=== PATIENT | male | born 1965 | race Caucasian/White ===

== ENCOUNTER 2017-04-24 18:35 | Inpatient (IN) | payer OTHER ==
[2017-04-24] MEDS ORDERED: Albuterol 0.083% Inhal Sol (2.5 mg/3 mL) UD INH ONE (20:01)
--- NOTE | 2017-04-24 20:05 | ED PDOC ---
HPI: CCC, URI, Sore Throat Time Seen by Provider: 04/24/17 19:14 Chief Complaint (Nursing): Flu-like Symptoms Chief Complaint (Provider): fever History Per: Patient History/Exam Limitations: no limitations Onset/Duration Of Symptoms: Days (5), Waxing/Waning Current Symptoms Are (Timing): Still Present Associated Symptoms: Fever, Cough, Nasal Congestion Additional History Per: Patient Additional Complaint(s): 51 y/o male presents with intermittent fevers x 5 days. Associated nasal congestion, nonproductive cough. PAtient seen by a clinic at his job yesterday and prescribed Azithromycin, but states today fever was noted to be 102.9, so was advised to come to ED for a chest xray. Denies headache, dizziness, nausea/ vomiting, chest pain, shortness of breath, palpitations, abdominal pain, changes in bowel movements, recent travel. No antipyretics taken today. Past Medical History Reviewed: Historical Data, Nursing Documentation, Vital Signs Vital Signs: Last Vital Signs Temp 98.0 F 04/24/17 22:58 Pulse 77 04/24/17 22:58 Resp 17 04/24/17 22:58 BP 144/83 04/24/17 22:58 Pulse Ox 99 04/24/17 22:58 - Medical History Other PMH: cardiomyopathy - Surgical History Surgical History: No Surg Hx - Family History Family History: States: No Known Family Hx - Home Medications Home Medications: Ambulatory Orders Medication Instructions Recorded Azithromycin [Zithromax] 500 mg PO DAILY 04/24/17 C/E/FA/Zinc/Selenium/Lycopene 1 tab PO DAILY 04/24/17 [Conceptionxr Reproductive Tab] Carvedilol [Coreg] 6.25 mg PO BID 04/24/17 Ramipril [Altace] 2.5 mg PO DAILY 04/24/17 - Allergies Allergies/Adverse Reactions: Allergies Allergy/AdvReac Type Severity Reaction Status Date / Time No Known Allergies Allergy Verified 04/24/17 19:46 Review of Systems ROS Statement: Except As Marked, All Systems Reviewed And Found Negative Constitutional: Positive for: Fever, Chills ENT: Positive for: Nose Congestion Respiratory: Positive for: Cough Physical Exam - Reviewed Nursing Documentation Reviewed: Yes Vital Signs Reviewed: Yes - Physical Exam Appears: Positive for: Well, Non-toxic, No Acute Distress Head Exam: Positive for: ATRAUMATIC, NORMOCEPHALIC Skin: Positive for: Normal Color Eye Exam: Positive for: Normal appearance ENT: Positive for: Nasal Congestion Cardiovascular/Chest: Positive for: Regular Rate, Rhythm Respiratory: Positive for: Normal Breath Sounds Gastrointestinal/Abdominal: Positive for: Normal Exam Back: Positive for: Normal Inspection Extremity: Positive for: Normal ROM Neurologic/Psych: Positive for: Alert, Oriented - Laboratory Results Result Diagrams: 04/24/17 21:44 04/24/17 21:44 - ECG ECG: Positive for: Viewed By Me (reviewed by ED attending) ECG Rhythm: Positive for: Sinus Bradycardia, Premature Ventricular Contraction O2 Sat by Pulse Oximetry: 97 - Radiology X-Ray: Viewed By Me X-Ray Interpretation: Infiltrates (bilateral lower lobes) - Progress ED Course And Treament: chest xray, albuterol neb, ibuprofen PO Patient with bilateral LL infiltrates; will order labs, IV rocephin WBC 16.8. Case discussed wt Dr. Whitt, medical service on-call, for admission. abx switched to IV levaquin, IV vanco Disposition - Clinical Impression Clinical Impression: Pneumonia - Patient ED Disposition Is Patient to be Admitted: Yes - Disposition Disposition Time: 22:45 Condition: FAIR
[2017-04-24] MEDS ORDERED: Sodium Chloride 0.9% 500 ML IV STA (20:52)
[2017-04-24] MEDS ORDERED: cefTRIAXone (Rocephin) 1 gm Inj ONE (21:18)
[2017-04-24 21:49] LABS: BASO # 0.1 K/uL (0.0-0.2); BASO % 0.5 % (0.0-2.0); EOS # 0.1 K/uL (0.0-0.7); EOS % 0.5 % (0.0-4.0); HEMOGLOBIN 13.4 g/dL (12.0-18.0); LYMPH # 1.5 K/uL (1.0-4.3); LYMPH % 8.7 % (20.0-40.0); MEAN CELL VOLUME 90.9 fl (80.0-94.0); MEAN CORPUSCULAR HEMOGLOBIN 30.4 pg (27.0-31.0); MEAN CORPUSCULAR HGB CONC 33.5 g/dL (33.0-37.0); MEAN PLATELET VOLUME 9.8 fl (7.2-11.7); MONO # 2.2 K/uL (0.0-0.8); MONO % 12.8 % (0.0-10.0); NEUT % 77.5 % (50.0-75.0); NRBC % 0.1 % (0.0-0.0); PLATELET COUNT 277 K/uL (130-400); RBC 4.42 Mil/uL (4.40-5.90); WHITE BLOOD COUNT 16.8 K/uL (4.8-10.8)
[2017-04-24 21:55] LABS: VENOUS BLOOD GAS BASE EXCESS 2.7 mmol/L (0.0-2.0); VENOUS BLOOD GAS PCO2 44 mmHg (40-60); VENOUS BLOOD GAS PO2 30 mm/Hg (30-55); VENOUS BLOOD PH 7.41 (7.32-7.43)
[2017-04-24 22:01] LABS: ALB/GLOB RATIO 1.1 (1.0-2.1); ALBUMIN 3.9 g/dL (3.5-5.0); ALT/SGPT 27 U/L (21-72); AST/SGOT 21 U/L (17-59); BLOOD UREA NITROGEN 13 mg/dl (9-20); CALCIUM 9.4 mg/dL (8.4-10.2); GFR AFRICAN-AMERICAN > 60; GFR NON-AFRICAN AMERICAN > 60
[2017-04-24 22:16] LABS: EOSINOPHIL 1 % (0-7); LYMPHOCYTE 5 % (20-50); MONOCYTE 9 % (0-10); NEUTROPHIL 82 % (42-75); PLATELET ESTIMATE NORMAL (NORMAL); REACTIVE LYMPHOCYTES 3 % (0-0); TOTAL CELLS COUNTED 100
[2017-04-24 22:18] LABS: HYPOCHROMIC SLIGHT
[2017-04-24 22:20] LABS: TOXIC GRANULATION PRESENT
[2017-04-24] MEDS ORDERED: levoFLOXacin 750 mg in D5W 150 ML BAG IVPB STA (22:22)
[2017-04-24] MEDS ORDERED: levoFLOXacin 750 mg in D5W 750 MG/150 ML BAG IVPB ONE (22:50)
--- NOTE | 2017-04-25 08:15 | CP.PCM.HP ---
History of Present Illness - History of Present Illness History of Present Illness: Patient evaluated with Dr Whitt during rounds. 51 y/o male with PMhx of Cardiomyopathy, PVCs, presented to ED yesterday with c/ o intermittent fevers x 5 days. Associated nasal congestion, nonproductive cough. Patient was seen by a clinic at his job 2 days and prescribed Azithromycin, but states fever was noted to be 102.9, so was advised to come to ED for a chest xray. Denies headache, dizziness, nausea/vomiting, chest pain, shortness of breath, palpitations, abdominal pain, changes in bowel movements, recent travel. CXR was interpreted as pneumonia and patient had elevated WBC in blood. Today patient feels better. No acute events overnight and has no new complains. Present on Admission - Present on Admission Any Indicators Present on Admission: No Review of Systems - Review of Systems All systems: reviewed and no additional remarkable complaints except - Constitutional Constitutional: Fever - Respiratory Respiratory: Cough, Chest Congestion Past Patient History - Past Medical History & Family History Past Medical History?: Yes - Past Social History Smoking Status: Never Smoked - CARDIAC Hx Cardiac Disorders: Yes Other/Comment: Cardiomyopathy - PULMONARY Hx Respiratory Disorders: No - NEUROLOGICAL Hx Neurological Disorder: No - HEENT Hx HEENT Problems: No - RENAL Hx Chronic Kidney Disease: No - ENDOCRINE/METABOLIC Hx Endocrine Disorders: No - HEMATOLOGICAL/ONCOLOGICAL Hx Blood Disorders: No - INTEGUMENTARY Hx Dermatological Problems: No - MUSCULOSKELETAL/RHEUMATOLOGICAL Hx Musculoskeletal Disorders: No Hx Falls: No - GASTROINTESTINAL Hx Gastrointestinal Disorders: No - GENITOURINARY/GYNECOLOGICAL Hx Genitourinary Disorders: No - PSYCHIATRIC Hx Psychophysiologic Disorder: No Hx Substance Use: No - SURGICAL HISTORY Hx Surgeries: No - ANESTHESIA Hx Anesthesia: No Hx Anesthesia Reactions: No Has any member of the family had a problem w/ anesthesia?: No Meds Allergies/Adverse Reactions: Allergies Allergy/AdvReac Type Severity Reaction Status Date / Time No Known Allergies Allergy Verified 04/24/17 19:46 Physical Exam - Constitutional Appears: Non-toxic, No Acute Distress - Eye Exam Eye Exam: EOMI, PERRL - ENT Exam ENT Exam: Mucous Membranes Moist - Respiratory Exam Respiratory Exam: Clear to Auscultation Bilateral, NORMAL BREATHING PATTERN - Cardiovascular Exam Cardiovascular Exam: +S1, +S2. absent: Gallop - GI/Abdominal Exam GI & Abdominal Exam: Normal Bowel Sounds, Soft. absent: Tenderness - Extremities Exam Extremities exam: Negative for: pedal edema - Neurological Exam Neurological exam: Alert, Normal Gait, Oriented x3 - Psychiatric Exam Psychiatric exam: Normal Affect, Normal Mood - Skin Skin Exam: Normal Color, Warm Results - Vital Signs Recent Vital Signs: Last Vital Signs Temp 97.9 F 04/25/17 08:00 Pulse 72 04/25/17 08:00 Resp 18 04/25/17 08:00 BP 113/64 04/25/17 08:00 Pulse Ox 97 04/25/17 08:00 - Labs Result Diagrams: 04/24/17 21:44 04/24/17 21:44 Labs: Laboratory Results - last 24 hr 04/24/17 04/24/17 04/24/17 21:44 21:44 21:46 WBC 16.8 H RBC 4.42 Hgb 13.4 Hct 40.2 MCV 90.9 MCH 30.4 MCHC 33.5 RDW 13.0 Plt Count 277 MPV 9.8 Neut % (Auto) 77.5 H Lymph % (Auto) 8.7 L [place] % (Auto) 12.8 H Eos % (Auto) 0.5 Baso % (Auto) 0.5 Neut # (Auto) 13.0 H Lymph # (Auto) 1.5 [place] # (Auto) 2.2 H Eos # (Auto) 0.1 Baso # (Auto) 0.1 Neutrophils % (Manual) 82 H Lymphocytes % (Manual) 5 L Reactive Lymphs % 3 H Monocytes % (Manual) 9 Eosinophils % (Manual) 1 Toxic Granulation Present Platelet Estimate Normal Hypochromasia (manual) Slight Macrocytosis (manual) Slight pO2 30 VBG pH 7.41 VBG pCO2 44 VBG HCO3 26.0 VBG Total CO2 29.3 H VBG O2 Sat (Calc) 62.8 VBG Base Excess 2.7 H VBG Potassium 4.1 Glucose 123 H Lactate 1.6 FiO2 21.0 Sodium 140 136.0 Potassium 4.4 Chloride 100 104.0 Carbon Dioxide 26 Anion Gap 18 BUN 13 Creatinine 1.2 Est GFR ( Amer) > 60 Est GFR (Non-Af Amer) > 60 Random Glucose 128 H Calcium 9.4 Total Bilirubin 0.7 AST 21 ALT 27 Alkaline Phosphatase 73 Total Protein 7.5 Albumin 3.9 Globulin 3.6 Albumin/Globulin Ratio 1.1 Venous Blood Potassium 4.1 Assessment & Plan - Assessment and Plan (Free Text) Assessment: CAP Partially treated with Zithromax C/W Current abx treatment Stable Hx of cardiomyopathy/PVCs Unifocal PVCs on EKG Asymptomatic No clinical signs of CHF Monitor
[2017-04-25] MEDS: Enoxaparin 40 mg Syringe SC SCH (09:53)
[2017-04-25] MEDS: levoFLOXacin 750 mg in D5W 750 MG/150 ML BAG IVPB SCH (10:34)
[2017-04-25] MEDS: [UNRECOGNIZED DRUG - MIXTURE] PO SCH ×2 (10:36→11:32)
[2017-04-25 10:42] LABS: BASO % 0.3 % (0.0-2.0); EOS # 0.2 K/uL (0.0-0.7); EOS % 1.5 % (0.0-4.0); HEMOGLOBIN 13.6 g/dL (12.0-18.0); LYMPH % 7.9 % (20.0-40.0); MEAN CELL VOLUME 90.8 fl (80.0-94.0); MEAN CORPUSCULAR HEMOGLOBIN 30.5 pg (27.0-31.0); MEAN CORPUSCULAR HGB CONC 33.6 g/dL (33.0-37.0); MEAN PLATELET VOLUME 9.5 fl (7.2-11.7); MONO # 1.4 K/uL (0.0-0.8); MONO % 11.3 % (0.0-10.0); NRBC % 0.1 % (0.0-0.0); RBC 4.46 Mil/uL (4.40-5.90); RED CELL DISTRIBUTION WIDTH 13.1 % (11.5-14.5); WHITE BLOOD COUNT 12.7 K/uL (4.8-10.8)
[2017-04-25 10:56] LABS: BLOOD UREA NITROGEN 14 mg/dl (9-20); CALCIUM 9.1 mg/dL (8.4-10.2); GFR AFRICAN-AMERICAN > 60; GFR NON-AFRICAN AMERICAN > 60
--- NOTE | 2017-04-25 11:41 | CARD ---
APPROVED REPORT EKG Measurement Heart [id number] <Conclusion> Sinus bradycardia with frequent premature ventricular complexes Incomplete right bundle branch block Borderline ECG
[2017-04-25] MEDS: [UNRECOGNIZED DRUG - MIXTURE] PO SCH (12:10)
--- NOTE | 2017-04-25 14:25 | RAD ---
HISTORY: fever, cough COMPARISON: No prior. TECHNIQUE: Chest PA and lateral FINDINGS: LUNGS: Patchy bilateral infiltrates suggested: Each lateral lung base and right mid lung zone PLEURA: Possible concomitant small left pleural effusion no pneumothorax CARDIOVASCULAR: Normal. OSSEOUS STRUCTURES: No significant abnormalities. VISUALIZED UPPER ABDOMEN: Normal. OTHER FINDINGS: None. IMPRESSION: Bilateral infiltrates
[2017-04-25] MEDS: Pneumococcal 23-Valent Vaccine IM ONE (17:55)
[2017-04-25] MEDS ORDERED: Nasal Spray(Ocean spray) NAS PRN (23:19)
[2017-04-26 01:06] VITALS: RESP 18
[2017-04-26] MEDS ORDERED: Multivitamin With Minerals Tab PO SCH (09:00)
[2017-04-26] MEDS: levoFLOXacin 750 mg in D5W 750 MG/150 ML BAG IVPB SCH (09:35)
[2017-04-26] MEDS: [UNRECOGNIZED DRUG - MIXTURE] PO SCH (09:36)
[2017-04-26] MEDS: Enoxaparin 40 mg Syringe SC SCH (09:36)
[2017-04-26 11:16] LABS: HEMOGLOBIN 14.4 g/dL (12.0-18.0); MEAN CELL VOLUME 91.2 fl (80.0-94.0); MEAN CORPUSCULAR HEMOGLOBIN 30.7 pg (27.0-31.0); MEAN CORPUSCULAR HGB CONC 33.7 g/dL (33.0-37.0); RBC 4.68 Mil/uL (4.40-5.90); RED CELL DISTRIBUTION WIDTH 13.2 % (11.5-14.5); WHITE BLOOD COUNT 11.8 K/uL (4.8-10.8)
--- NOTE | 2017-04-26 11:29 | RAD ---
HISTORY: f/u COMPARISON: Chest radiographs 04/24/2017 TECHNIQUE: Chest PA and lateral FINDINGS: LUNGS: Patchy densities are diminished at the bilateral bases laterally with significant residual. PLEURA: Trace left pleural effusion not excluded. None is seen the right. No pneumothorax bilaterally. CARDIOVASCULAR: Normal. OSSEOUS STRUCTURES: No significant abnormalities. VISUALIZED UPPER ABDOMEN: Normal. OTHER FINDINGS: None. IMPRESSION: Residual bibasilar infiltrates or atelectasis but reduced in the interval. Trace left pleural effusion not excluded.
[2017-04-26 12:12] VITALS: BP 111/64; PULSE 55; TEMP 97.8; O2SAT 98
[2017-04-26] MEDS ORDERED: Pneumococcal 23-Valent Vaccine IM ONE (15:51)
[2017-04-26] MEDS: Pneumococcal 23-Valent Vaccine IM ONE (16:09)
== END 2017-04-26 16:25 | disposition home or self-care (01) | DRG 194 ==
LOC: H.ER 18:35 → H.ERHOLD 22:55 → H.TEL 04-25 01:24
PROVIDERS: ADMIT Internal Medicine; ATTEND Internal Medicine
PROC: 3E0234Z Introduction of Serum, Toxoid and Vaccine into Muscle, Percutaneous Approach (ICD-10-PCS; principal; 2017-04-26)
DX: J18.9 Pneumonia, unspecified organism (principal); I42.9 Cardiomyopathy, unspecified; I49.3 Ventricular premature depolarization; Z23 Encounter for immunization